=== PATIENT | male | born 1965 | race Caucasian/White ===

== ENCOUNTER 2016-12-22 07:39 | Day surgery (SDC) | payer BC ==
[~2016-12-22] VITALS: Ht 177.8 cm; Wt 112.9 kg
[~2016-12-22 07:39] MED LIST: ACET500T33 PO; FENTANYL PF 100 MCG/2 ML VIAL. IV PRN; IV RINGERS,LACTATED 1000ML 1,000 ML IV SCH; LIDOCAINE 1% 1 ML SYRINGE. ID PRN; ONDANSETRON PF 4 MG/2 ML VIAL. IV PRN; PROCHLORPERAZINE 10 MG/2 ML VIAL. IV PRN; TAMS0.4C97 PO
[2016-12-22] MEDS ORDERED: ACETAMINOPHEN INTRAVENOUS 100 ML IV ONE (07:52)
[2016-12-22] MEDS ORDERED: CEFAZOLIN 2GM PREMIX 50 ML IV ONE (08:00)
[2016-12-22] MEDS ORDERED: ROCURONIUM 50 MG/5 ML VIAL. ONE (08:28)
[2016-12-22] MEDS ORDERED: MIDAZOLAM HCL 2 MG/2 ML VIAL. ONE (08:28)
[2016-12-22] MEDS ORDERED: FENTANYL PF 250 MCG/5 ML VIAL. ONE (08:28)
[2016-12-22] MEDS ORDERED: PROPOFOL 20 ML IV ONE (08:29)
[2016-12-22] MEDS ORDERED: LIDOCAINE 2% 100 MG/5 ML DISP.SYRIN. ONE ×2 (08:29→11:10)
[2016-12-22] MEDS ORDERED: ONDANSETRON PF 4 MG/2 ML VIAL. ONE (08:29)
[2016-12-22] MEDS ORDERED: DEXAMETHASONE SOD PHOS 20 MG/5 ML VIAL. ONE (08:29)
[2016-12-22] MEDS ORDERED: BUPIVACAINE MPF 0.5% 30 ML VIAL. ONE (09:55)
[2016-12-22] MEDS ORDERED: GLYCOPYRROLATE 1 MG/5 ML VIAL. ONE (10:30)
[2016-12-22] MEDS ORDERED: NEOSTIGMINE METHYLSULFATE 5 MG/5 ML SYRINGE. ONE (10:30)
--- NOTE | 2016-12-22 11:22 | DISCH ---
DISCHARGE INSTRUCTIONS Condition on Discharge Condition on Discharge: Stable Activity After Discharge Activity Instructions for Disc: Activity as tolerated, Avoid exertion Lifting Instructions after Dis: No heavy lifting Driving Instructions after Dis: Do not drive (3-4 days) Diet after Discharge Diet after Discharge: Regular Wound Incision Care Wound/Incision Care: Ice to area for comfort MARJAN SNYDER MD Dec 22, 2016 11:22
--- NOTE | 2016-12-22 11:27 | PDOC ---
BRIEF OPERATIVE NOTE Date: Dec 22, 2016 Pre-Op Diagnosis incarcerated umbilical hernia Post-Op Diagnosis same Procedure Performed primary repair Surgeon Curry Anesthesia Type: General Blood Loss 5cc IV Fluid 700cc Specimens Obtained hernia sack Findings incarcerated omentum Complications none Additional Remarks # [id number] MARJAN SNYDER MD Dec 22, 2016 11:27
[2016-12-22] MEDS: FENTANYL PF 100 MCG/2 ML VIAL. IV PRN ×2 (11:33→11:46)
[2016-12-22] MEDS ORDERED: TRAMADOL 50 MG TABLET. PO PRN (12:15)
[2016-12-22] MEDS ORDERED: OXYC-323 PO (12:35)
[2016-12-22 12:40] VITALS: BP 112/67
[2016-12-22] MEDS ORDERED: OXYCODONE/APAP 5/325 TABLET. PO PRN (12:45)
--- NOTE | 2016-12-22 17:29 | OP ---
DATE OF SURGERY: 12/22/2016 PREOPERATIVE DIAGNOSIS: Incarcerated umbilical hernia. POSTOPERATIVE DIAGNOSIS: Incarcerated umbilical hernia. PROCEDURE: Primary repair. SURGEON: Marjan Snyder MD ANESTHESIA: General endotracheal. ESTIMATED BLOOD LOSS: 5 mL. INTRAVENOUS FLUIDS: 700 mL. INDICATIONS: The patient is an obese 51-year-old with umbilical fullness and pain, brought for repair. OPERATIVE FINDINGS: There were incarcerated omental contents in the hernia sac. DESCRIPTION OF PROCEDURE: The patient brought to the operating suite, given general endotracheal anesthetic and the abdomen prepped and draped in usual sterile fashion. An infraumbilical incision was infiltrated with local anesthetic, sharply incised, and dissection carried down to the anterior sheath. The hernia was encircled, a [place] drain placed around it, and the overlying umbilical skin was freed. The incarcerated contents were freed and reduced. The hernia sac was excised. A small defect closed with interrupted inverted [id number] 0 PDS suture x 2. A second row with 0 Vicryl was placed to reinforce the repair. Good hemostasis was present and a correct sponge count was obtained. The umbilical skin was tacked to the overlying repair with 3-0 Vicryl. Skin closed with a subcuticular 4-0 Monocryl. Steri-Strips and sterile dressing applied. Abdominal binder placed. The patient was awakened from his anesthetic and taken to the recovery room in satisfactory condition. MARJAN SNYDER MD DR: SRIKANTH/cortez JOB#: [id number] / [id number]
== END 2016-12-22 13:01 | disposition home or self-care (01) ==
LOC: SURG 07:39
PROVIDERS: ATTEND Surgery
DX: K42.0 Umbilical hernia with obstruction, without gangrene (principal); E66.9 Obesity, unspecified; Z87.442 Personal history of urinary calculi; Z72.89 Other problems related to lifestyle; Z72.0 Tobacco use
CPT/HCPCS: 49587; C1769; J0131; J0690; J1100; J2250; J2405; J2704; J2710; J3010; J3490

== ENCOUNTER → 2019-06-08 | Outpatient (CLI) | payer BC ==
[2018-02-16 14:47] VITALS: BP 105/72
[~2019-06-08] MED LIST changes: +CYCL10TA2 PO; -FENTANYL PF 100 MCG/2 ML VIAL. IV PRN; -IV RINGERS,LACTATED 1000ML 1,000 ML IV SCH; -LIDOCAINE 1% 1 ML SYRINGE. ID PRN; +NAPR500T8 PO; -ONDANSETRON PF 4 MG/2 ML VIAL. IV PRN; +OXYC1TAB15 PO; +OXYC1TAB22 PO; -PROCHLORPERAZINE 10 MG/2 ML VIAL. IV PRN; +SENN1TAB70 PO; +SULF1TAB24 PO
[2019-06-08 11:52] LABS: BASO % 1 % (0-3); EOS # 0.1 x10^3/uL (0.0-0.7); EOS % 2 % (0-3); HEMATOCRIT 44.4 % (39.0-53.0); HEMOGLOBIN 14.9 g/dL (13.0-17.5); LYMPH # 1.8 x10^3/uL (1.0-4.8); LYMPH % 28 % (24-48); MEAN CORPUSCULAR HEMOGLOBIN 29 pg (25-35); MEAN CORPUSCULAR HGB CONC 34 g/dL (31-37); MEAN CORPUSCULAR VOLUME 86 fL (79-100); MONO # 0.5 x10^3/uL (0.0-1.1); MONO % 8 % (0-9); NEUT % 62 % (31-73); PLATELET COUNT 241 x10^3/uL (140-400); RED BLOOD COUNT 5.15 x10^6/uL (4.30-5.70); RED CELL DISTRIBUTION WIDTH 13.8 % (11.5-14.5); WHITE BLOOD COUNT 6.4 x10^3/uL (4.0-11.0)
[2019-06-08 12:03] LABS: ALBUMIN 3.1 g/dL (3.4-5.0); CALCIUM 8.5 mg/dL (8.5-10.1); CREATININE 1.2 mg/dL (0.7-1.3); GFR 63.6; POTASSIUM 3.8 mmol/L (3.5-5.1); TOTAL BILIRUBIN 0.5 mg/dL (0.2-1.0)
== END | disposition home or self-care (01) ==
LOC: SURGPAT 11:14
PROVIDERS: ATTEND Surgery
DX: Z01.818 Encounter for other preprocedural examination (principal); K80.20 Calculus of gallbladder without cholecystitis without obstruction; Z88.5 Allergy status to narcotic agent
CPT/HCPCS: 36415; 80048; 82040; 82247; 85025

== ENCOUNTER 2019-06-10 12:01 | Day surgery (SDC) | payer BC ==
[~2019-06-10] VITALS: Ht 177.8 cm; Wt 115.0 kg
[~2019-06-10 12:01] MED LIST changes: +BUPIVACAINE-EPI 0.5%-1:200000 MPF 30 ML VIAL. INJ ONE; +IV RINGERS,LACTATED 1000ML 1,000 ML IV SCH; +ONDANSETRON PF 4 MG/2 ML VIAL. IV PRN; -OXYC1TAB22 PO; +PROCHLORPERAZINE 10 MG/2 ML VIAL. IV PRN; -SENN1TAB70 PO; +fentaNYL PF VIAL 100 MCG/2 ML VIAL IV PRN
[2019-06-10] MEDS ORDERED: ROCURONIUM 50 MG/5 ML VIAL. ONE (12:46)
[2019-06-10] MEDS ORDERED: DEXAMETHASONE SOD PHOS 4 MG/ML VIAL ONE (12:46)
[2019-06-10] MEDS ORDERED: MIDAZOLAM HCL/PF 2 MG/2 ML VIAL. ONE (12:46)
[2019-06-10] MEDS ORDERED: PROPOFOL 20 ML IV ONE ×2 (12:46→14:22)
[2019-06-10] MEDS ORDERED: LIDOCAINE 2% PF 5 ML VIAL. ONE (12:46)
[2019-06-10] MEDS ORDERED: ONDANSETRON PF 4 MG/2 ML VIAL. ONE (12:46)
[2019-06-10] MEDS ORDERED: fentaNYL PF VIAL 100 MCG/2 ML VIAL ONE ×2 (12:46→15:38)
[2019-06-10] MEDS ORDERED: GLUCAGON,HUMAN RECOMBINANT 1 MG/ML VIAL. ONE (13:31)
[2019-06-10] MEDS ORDERED: IOHEXOL 300 MG/ML 50 ML VIAL. ONE (13:31)
[2019-06-10] MEDS ORDERED: SURGICEL HEMOSTAT 4X8 EACH. ONE (13:31)
[2019-06-10] MEDS ORDERED: ceFAZolin 2GM PREMIX 2 GM/50 ML BAG IV ONE (14:00)
[2019-06-10] MEDS ORDERED: SEVOFLURANE 61 TO 120 MINUTES. IH ONE (14:38)
[2019-06-10] MEDS ORDERED: ePHEDrine PF IN SALINE 50 MG/10 ML SYRINGE. IV ONE (14:42)
[2019-06-10] MEDS ORDERED: GLYCOPYRROLATE 1 MG/5 ML VIAL. ONE (14:48)
[2019-06-10] MEDS: fentaNYL PF VIAL 100 MCG/2 ML VIAL IV PRN ×3 (15:40→16:00)
--- NOTE | 2019-06-10 15:49 | DISCH ---
DISCHARGE INSTRUCTIONS Condition on Discharge Condition on Discharge: Stable Activity After Discharge Activity Instructions for Disc: Activity as tolerated, Avoid exertion Lifting Instructions after Dis: No heavy lifting Driving Instructions after Dis: Do not drive Weight Bearing Status after Di: As tolerated Diet after Discharge Diet after Discharge: Regular Wound Incision Care Wound/Incision Care: Ice to area for comfort Other wound/incision instructi: february showthursday Contacting the DRKathy after DC Call your doctor for: If your condition worsens Follow-Up Follow up with: Curry Treatment/Equipment after DC Adaptive Equipment Issued: None MARJAN SNYDER MD Jun 10, 2019 15:49
--- NOTE | 2019-06-10 15:59 | RAD ---
Exam: CR cholangiogram intraoperative INDICATION: Abdominal pain TECHNIQUE: Intraoperative cholangiogram fluoroscopic images were submitted for interpretation. Fluoroscopy time: 9 seconds Images: 2 Comparisons: CT 05/31/2019 FINDINGS: Preliminary image is done before injection of contrast material which demonstrates surgical clips in the right upper quadrant. Rounded density in the right upper quadrant likely relates to known gallstone. Second image demonstrates filling of the common bile duct and intrahepatic biliary tree without evidence of stricture or biliary ductal dilatation. No extravasation is identified. IMPRESSION: Cholangiogram images as described above. Please see procedural note for further details. Electronically signed by: Angie Beckham MD (06/10/2019 3:56 PM) [id number]
[2019-06-10 16:25] VITALS: BP 141/75
[2019-06-10] MEDS ORDERED: OXYC1TAB22 PO (16:44)
[2019-06-10] MEDS ORDERED: SENN1TAB70 PO (16:45)
[2019-06-10] MEDS ORDERED: oxyCODONE/APAP 10/325 1 TAB TABLET PO ONE (17:00)
--- NOTE | 2019-06-10 19:29 | OP ---
DATE OF SURGERY: 06/10/2019 PREOPERATIVE DIAGNOSIS: Symptomatic cholelithiasis. POSTOPERATIVE DIAGNOSES: Symptomatic cholelithiasis with omental adhesions. PROCEDURE: Laparoscopic cholecystectomy with cholangiogram, lysis of adhesions. SURGEON: Bassem Snyder MD RN UROLOGY: MANAV Hebert ANESTHESIA: General endotracheal. ESTIMATED BLOOD LOSS: 20 mL. INTRAVENOUS FLUIDS: 700 mL. DESCRIPTION OF PROCEDURE: The patient brought to the operating suite, given a general endotracheal anesthetic and the abdomen prepped and draped in usual sterile fashion. A supraumbilical incision was infiltrated with local anesthetic, incised and a 5 mm Visiport used to gain access into the abdominal cavity, taking care to avoid injury to abdominal contents. Pneumoperitoneum established. Camera inserted. Inspection carried out with results as noted above. With the table in reverse Trendelenburg rolled slightly to the left, the epigastric, midclavicular, and lateral ports were placed under direct vision. The gallbladder was retracted superolaterally and the inferior aspect was exposed by taking down the fatty adhesions to show the cystic duct and cystic artery. The duct was clipped on the gallbladder side. Cholangiograms were made. These were normal. In light of this, the catheter was removed. The cystic duct was clipped x 3 and divided, taking care to avoid injury or compromise the common duct. An anterior and posterior branch of the cystic artery were doubly clipped and divided and the gallbladder freed from the bed with cautery dissection and placed in an EndoCatch bag. Hemostasis in the fossa obtained with cautery and a small piece of Surgicel. No evidence of bile leak seen. A 19-[place] round Baljinder drain was brought through the epigastric port out the lateral port, sewn to the skin with a silk stitch and left in the subhepatic space for postoperative drainage. Table returned to level. Camera was moved to the midclavicular port and a LigaSure was used to take down omental adhesions from the midline below the umbilicus, being careful to avoid any adjacent bowel. The gallbladder was then delivered through the epigastric incision. Epigastric incision was closed with 0 Vicryl suture. Intra-abdominal pressure decreased to 8 cm of water, no bleeding from the epigastric closure or from the midclavicular port site after its removal or from the drain site. Abdomen decompressed. Port removed. Skin incisions closed with a subcuticular 4-0 Monocryl. Steri-Strips and sterile dressings applied. The patient was awakened from his anesthetic and taken to the recovery room in satisfactory condition. BASSEM SNYDER MD DR: Julio JOB#: [id number] / [id number]
--- NOTE | 2019-06-14 18:06 | PATHOLOGY ---
[facility] Accession Number: [id number] . 01 Material submitted: . gallbladder - GALLBLADDER AND CONTENTS . 01 Clinical history: . Cholelithisias . 02 Diagnosis: Gallbladder, cholecystectomy: - Cholelithiasis. - Cholesterolosis, focal. - Chronic cholecystitis. LBQ 06/14/2019 1558 Local . 02 Comment: There is no evidence of malignancy. (JPM/db; 06/14/2019) . 02 Electronically signed: . Carlos Gillespie MD, Pathologist NPI- [id number] . 01 Gross description: . The specimen is received in formalin, labeled "Laird, Oneil, gallbladder and contents" and consists of an intact, green-ferreira, and ragged gallbladder measuring 8.4 x 2.0 x 1.8 cm. The gallbladder is partially covered in yellow adipose tissue. The margin is inked black. Opening reveals the gallbladder contains viscous green bile and a single round smooth green calculus measuring 1.8 x 1.7 cm. The mucosa is green with yellow stippling and no polyps or mass lesions. The gallbladder wall measures 0.1 cm with attached yellow adipose tissue up to 0.5 cm. 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 (SDY; 06/13/2019) SYU/SYU 06/13/2019 1634 Local . 02 Pathologist provided ICD-10: K80.10, K82.4 . 02 CPT . 426854 Specimen Comment: A courtesy copy of this report has been sent to Specimen Comment: [phone], . Specimen Comment: Report sent to / DR DE LA ROSA Performed at: [address], [place], [place] [id number] MD Bryan Pascual MD Phone: [phone] Performed at: [address] [id number] MD Carlos Gillespie MD Phone: [phone]
--- NOTE | 2019-06-21 13:05 | PDOC ---
BRIEF OPERATIVE NOTE Date: Jun 10, 2019 Pre-Op Diagnosis symptomatic cholelithiasis Post-Op Diagnosis same, adhesions Procedure Performed l/s dariela with grams SUJATHA Surgeon Curry Anesthesia Type: General Blood Loss 20cc IV Fluid 700cc Specimens Obtained GB Complications none Operative Note dictated MARJAN SNYDER MD Jun 21, 2019 13:05
== END 2019-06-10 17:05 | disposition home or self-care (01) ==
LOC: SURG 12:01
PROVIDERS: ATTEND Surgery
DX: K80.10 Calculus of gallbladder with chronic cholecystitis without obstruction (principal); K66.0 Peritoneal adhesions (postprocedural) (postinfection); E66.9 Obesity, unspecified; Z68.36 Body mass index [BMI] 36.0-36.9, adult; Z98.52 Vasectomy status; Z98.890 Other specified postprocedural states; Z88.5 Allergy status to narcotic agent; Z87.442 Personal history of urinary calculi
CPT/HCPCS: 47563; 74300; 88304; J0171; J0696; J1100; J2001; J2250; J2405; J2704; J3010; J3490; J7030; J7120; Q9967; J1610